=== PATIENT | female | born 1985 | race Caucasian/White ===

== ENCOUNTER 2020-12-23 14:39 | Outpatient (REF) | payer OTHER, SELFPAY ==
--- NOTE | ~2020-12-23 | US_ITS ---
EXAMINATION: MM DIAGNOSTIC DIGITAL BREAST TOMOSYNTHESIS, BILATERAL US DIAGNOSTIC ULTRASOUND BREAST, BILATERAL CLINICAL INFORMATION: 35-year-old with scattered bilateral waxing and waning mastodynia. Scattered areas of palpable fullness noted. No known family history breast cancer. The lifetime risk of breast cancer based on the Tyrer-Cuzick Model is 8%. COMPARISON: Reports from outside diagnostic mammography and left breast ultrasound 09/06/2020 ([facility], [place], [place]). TECHNIQUE: Digital breast tomosynthesis is performed in both the craniocaudal and mediolateral oblique views along with computer-aided detection (CAD). Synthesized 2D images are generated from the tomosynthesis. Ultrasound both breasts are imaged with ultrasound using grayscale imaging and color Doppler without and with harmonics. All 4 quadrants are imaged on each side. FINDINGS: The breasts are heterogeneously dense, which may obscure small masses (ACR BI-RADS breast composition Category c). Breast tissue composition borders on extremely dense in the bilateral upper outer quadrants. There is no mass or architectural abnormality. No abnormal calcifications. The axilla and skin contours are unremarkable. There is no skin thickening or coarsening of the Nino's ligaments. Ultrasound bilateral breasts demonstrate no cystic or solid mass, architectural abnormality, or focal duct ectasia. There is no skin thickening or edema tracking in the soft tissue planes. Results are discussed with the patient at time of visit. Patient should be managed based on the clinical impression. If clinically indicated, further evaluation may be considered with surgical consult. Decision to proceed with biopsy should be based on clinical grounds and degree of clinical concern. US/US breast RT limited IMPRESSION: No mammographic evidence of malignancy or inflammatory changes. Unremarkable bilateral breast ultrasound. ASSESSMENT: BI-RADS 1: Negative RECOMMENDATION: 1. Patient should be managed based on the clinical impression. If clinically indicated, further evaluation may be considered with surgical consult. Decision to proceed with biopsy should be based on clinical grounds and degree of clinical concern. 2. Otherwise, routine annual screening mammography, beginning age 40, or earlier as clinical risk factors warrant. This patient's information was entered into a reminder system with a target due date for their next mammogram.
--- NOTE | ~2020-12-23 | US_ITS ---
EXAMINATION: MM DIAGNOSTIC DIGITAL BREAST TOMOSYNTHESIS, BILATERAL US DIAGNOSTIC ULTRASOUND BREAST, BILATERAL CLINICAL INFORMATION: 35-year-old with scattered bilateral waxing and waning mastodynia. Scattered areas of palpable fullness noted. No known family history breast cancer. The lifetime risk of breast cancer based on the Tyrer-Cuzick Model is 8%. COMPARISON: Reports from outside diagnostic mammography and left breast ultrasound 09/06/2020 ([facility], [place], [place]). TECHNIQUE: Digital breast tomosynthesis is performed in both the craniocaudal and mediolateral oblique views along with computer-aided detection (CAD). Synthesized 2D images are generated from the tomosynthesis. Ultrasound both breasts are imaged with ultrasound using grayscale imaging and color Doppler without and with harmonics. All 4 quadrants are imaged on each side. FINDINGS: The breasts are heterogeneously dense, which may obscure small masses (ACR BI-RADS breast composition Category c). Breast tissue composition borders on extremely dense in the bilateral upper outer quadrants. There is no mass or architectural abnormality. No abnormal calcifications. The axilla and skin contours are unremarkable. There is no skin thickening or coarsening of the Nino's ligaments. Ultrasound bilateral breasts demonstrate no cystic or solid mass, architectural abnormality, or focal duct ectasia. There is no skin thickening or edema tracking in the soft tissue planes. Results are discussed with the patient at time of visit. Patient should be managed based on the clinical impression. If clinically indicated, further evaluation may be considered with surgical consult. Decision to proceed with biopsy should be based on clinical grounds and degree of clinical concern. US/US breast LT limited IMPRESSION: No mammographic evidence of malignancy or inflammatory changes. Unremarkable bilateral breast ultrasound. ASSESSMENT: BI-RADS 1: Negative RECOMMENDATION: 1. Patient should be managed based on the clinical impression. If clinically indicated, further evaluation may be considered with surgical consult. Decision to proceed with biopsy should be based on clinical grounds and degree of clinical concern. 2. Otherwise, routine annual screening mammography, beginning age 40, or earlier as clinical risk factors warrant. This patient's information was entered into a reminder system with a target due date for their next mammogram.
== END 2020-12-23 14:40 | disposition home or self-care (01) ==
LOC: HO.MAMMO 14:39
PROVIDERS: Visit Provider Nurse Practitioner Family
DX: N63.15 Unspecified lump in the right breast, overlapping quadrants (principal); N63.14 Unspecified lump in the right breast, lower inner quadrant; N63.23 Unspecified lump in the left breast, lower outer quadrant
CPT/HCPCS: 76642; 77062; 77066

== ENCOUNTER 2025-05-27 12:07 | Emergency (ER) | payer OTHER, SELFPAY ==
--- NOTE | ~2025-05-27 | US_ITS ---
EXAMINATION: US KIDNEY RIGHT HISTORY: right CVA tenderness TECHNIQUE: Real-time grayscale ultrasound imaging of the right kidney was performed and images were reviewed. COMPARISON: There are no prior studies available for comparison. FINDINGS: The right kidney measures 11.01 cm. Renal parenchymal echotexture and thickness are normal. There are no masses. There is no hydronephrosis or renal calculi. US/US renal RT IMPRESSION: Unremarkable ultrasound of the right kidney. Electronically signed by: Kamlesh Crabtree MD 05/27/2025 01:48 PM EDT
[2025-05-27 12:41] VITALS: BP 110/76; PULSE 96; RESP 16; TEMP 36.7; O2SAT 97; BMI 24.8
--- NOTE | 2025-05-27 12:47 | ED.GENADULT ---
HPI - General Adult General Chief complaint: Back Pain/Injury Stated complaint: Back pain, discolored urine Time Seen by Provider: 05/27/25 15:23 Source: patient Mode of arrival: ambulatory Limitations: no limitations History of Present Illness ED Provider: HPI narrative: 39-year-old woman presenting with right mid back pain, dark urine, whitish vaginal discharge and having unprotected sexual intercourse proximal 1 week ago, has had no history of kidney stones no abdominal pain no nausea no vomiting no rashes over the back or vaginal area reported. No fevers or chills. Smokes marijuana. No numbness in the groin, no weakness in the lower extremities. Related Data Previous Rx's ?Medication ?Instructions ?Recorded metronidazole 500 mg tablet 500 mg PO BID 7 days #14 tabs 05/27/25 Allergies Allergy/AdvReac Type Severity Reaction Status Date / Time fluconazole (From Diflucan) Allergy Unknown Verified 05/27/25 12:48 Penicillins Allergy Unknown Verified 05/27/25 12:48 Review of Systems Constitutional: Constitutional: Reports as per [facility] Social History Social History Advance Directives: No Advance Directives Information Provided: Yes Physical Exam ED Vital Signs: Vital Signs - 24 hr 05/27/25 12:41 05/27/25 15:40 Temperature 98.1 F Pulse Rate 96 93 Respiratory Rate 16 17 Blood Pressure 110/76 118/82 Pulse Oximetry 97 99 Oxygen Delivery Method Room Air Room Air BMI result Body Mass Index 24.8 Const Other: Gen: ?Overall well-appearing patient Resp: ?No wheezing rales rhonchi no stridor moving air well Abd: ?Bowel sounds are present, no tenderness no rebound no rigidity MSK: FROM, strength 5/5 all extremities, tenderness over paraspinal muscles right mid back without midline tenderness or step-offs from thoracic down to the lumbar area Skin: Warm, dry, intact, Neuro: ?Alert and oriented x3, moving upper and lower extremities symmetrically, no obvious facial asymmetry noted Course Course Course Narrative: This is an RME: Additional HPI, ROS, PE not included below will be deferred to primary provider. RME assessment and note performed by: Gisella June PA-C This is a 39-year-old female with no known medical problems, who presents emergency department with complaints of right-sided flank pain since the last 3-4 days. Also reporting dark colored urine. She also reports possible concern for STI. Plan: Labs, UA, further ER evaluation needed. Medications Administered Discontinued Medications Generic Name Dose Route Start Last Admin Trade Name Kamilla PRN Reason Stop Dose Admin Ketorolac Tromethamine 15 mg 05/27/25 15:33 05/27/25 16:05 Ketorolac Tromethamine 15 Mg/Ml Vial IM 05/27/25 15:34 15 mg ONCE ONE Administration Lidocaine 1 patch 05/27/25 15:33 05/27/25 16:05 Lidocaine 4 % Patch Adh..Patch TRANSDERMA 05/27/25 15:34 1 patch ONCE ONE Administration Protocol Oxycodone HCl 5 mg 05/27/25 15:33 05/27/25 16:05 Oxycodone Hcl Immed Release 5 Mg Tablet PO 05/27/25 15:34 5 mg ONCE ONE Administration Medical Decision Making Medical Decision Making [facility] Narrative: 3:37 PM 05/27/2025 (Dr. Shay Valdes): Multiple complaints, as far as her back pain, she had an ultrasound without any hydronephrosis, no perinephric abscesses, blood work without any evidence for dehydration, I have addressed her STI concerns and she is comfortable with testing for GC and chlamydia, then no risk factors for diskitis osteomyelitis, and she is not . 5:03 PM 05/27/2025 (Dr. Shay Valdes): Patient's back pain is feeling better, the BV swab is still pending, I spoke to the patient and this she is now looking forward to being discharged I am going to treat her for BV and yeast infection and she will get a call if her urine gets positive for gonorrhea chlamydia she is also slightly hypokalemic Differential Diagnosis Differential Diagnoses: The differential diagnosis associated with the presentation includes (Renal colic, diskitis osteomyelitis, spinal epidural abscess, STI, pyelonephritis) Admission/Observation Consideration of admission/observation: Escalation of care including admission/observation considered Lab Data [facility] Lab Attestation statement: I reviewed the patient's lab results. 05/27/25 13:20 05/27/25 13:20 Labs: Lab Results 05/27/25 05/27/25 05/27/25 Range/Units 13:20 15:43 16:11 WBC 11.2 H (4.8-10.8) X10*3/uL RBC 5.08 (4.20-5.50) X10*6/uL Hgb 14.0 (12.0-16.0) g/dl Hct 40.3 (37.0-47.0) % MCV 79.3 L (80.0-98.0) fL MCH 27.6 (27.0-33.0) pg MCHC 34.7 (31.0-35.0) g/dl RDW 14.1 (11.0-16.0) % Plt Count 450 H (160-400) X10*3/uL MPV 9.7 (9.4-12.3) fL Immature Gran % (Auto) 0.4 (0.0-0.4) % Neut % (Auto) 64.5 (45-73) % Lymph % (Auto) 26.6 (20-40) % Mingo % (Auto) 7.1 (2-11) % Eos % (Auto) 0.9 (0-4) % Baso % (Auto) 0.5 (0-2) % Lymph # (Auto) 3.0 (1.2-4.9) X10*3/uL Mingo # (Auto) 0.8 (0.1-1.2) X10*3/uL Eos # (Auto) 0.1 (0.0-0.4) X10*3/uL Baso # (Auto) 0.1 (0.0-0.2) X10*3/uL Abs Immat Gran (auto) 0.04 H (0.00-0.03) X10*3/uL Absolute Neuts (auto) 7.2 (2.0-8.3) x10*3/uL Absolute Nucleated RBC 0.000 (0.0-0.012) X10*3/uL Nucleated RBC % (auto) 0.0 (0.0-0.2) /100WBC Sodium 140 (135-145) mmol/L Potassium 3.1 L (3.3-5.1) mmol/L Chloride 104 (96-108) mmol/L Carbon Dioxide 29 (22-29) mmol/L Anion Gap 10 L (12-20) BUN 12 (9-16) mg/dL Creatinine 0.78 (0.5-1.4) mg/dL Estim Creat Clear Calc 86.9 Estimated GFR > 60 Random Glucose 115 (60-115) mg/dL Calcium 9.2 (8.4-10.2) mg/dL Magnesium 2.2 (1.6-2.6) mg/dL Total Bilirubin 0.4 (0.0-1.0) mg/dL Direct Bilirubin 0.2 (0.0-0.5) mg/dL AST 74 H (5-31) U/L ALT 82 H (0-31) U/L Alkaline Phosphatase 83 (39-117) U/L Total Protein 7.6 (6.5-8.0) g/dL Albumin 4.5 (3.5-5.0) g/dL Lipase 11 (8-78) U/L Beta HCG, Quant < 2 mIU/mL Urine Color Yellow Urine Appearance Clear Urine pH 6.5 (5.0-9.0) Ur Specific [place] 1.015 (1.005-1.025) Urine Protein Negative (Neg-Trace) mg/dL Urine Glucose (UA) Negative (Negative) mg/dL Urine Ketones 15 (Negative) mg/dL Urine Blood Negative (Negative) Urine Nitrite Negative (Negative) Ur Leukocyte Esterase Small (1+) H (Negative) Urine RBC 0-2 (0-2) /HPF Urine WBC 6-10 H (0-5) /HPF Ur Squamous Epith Cells 11-20 (0-2) /HPF Urine Bacteria Trace (None Seen) Hyaline Casts 0-2 (0-2) /LPF T. vaginalis (PCR) NOT DETECTED (Not Detect) Bact vaginosis (PCR) POSITIVE A (Negative) C. krusei/glabrata (PCR) NOT DETECTED (Not Detect) Analia group (PCR) NOT DETECTED (Not Detect) Radiology Impression Discussion of test interpretation with radiology: I have reviewed the radiologist's reading. (No hydronephrosis) Prescription Management I considered prescription management with: Pain Medication and Antibiotic Discharge Plan Discharge Clinical Impression: Bacterial vaginosis, Vaginal yeast infection Patient Disposition: Home, Self-Care Instructions: Bacterial Vaginosis (ED) Additional Instructions: Do not use alcohol while taking metronidazole, twice a day for 7 days you did test positive for bacterial vaginosis, negative for yeast, as discussed chlamydia and gonorrhea test we will be pending until next 48 hours and if it comes back positive he will get a phone call, continue taking Tylenol ibuprofen as needed for your back pain, you can also pickle maker [id number] capsaicin ointment patches they work very well, ultrasound of the kidneys written reassuring, any other issues or concerns please do not hesitate to come back to the ER. Otherwise follow up with the PCP Prescriptions: New metronidazole 500 mg tablet 500 mg PO BID 7 Days Qty: 14 0RF Referrals: Po,Maryjo Yao MD [Primary Care Provider, Internal Medicine] Clinical Impression: Bacterial vaginosis; Vaginal yeast infection Print Language: Icelandic
[2025-05-27 13:25] LABS: MANUAL DIFF FLAG NO
[2025-05-27 13:29] LABS: Hematocrit 40.3 % (37.0-47.0); Hemoglobin 14.0 g/dl (12.0-16.0); Imm Gran Abs Auto 0.04 X10*3/uL (0.00-0.03); Imm Gran Pct Auto 0.4 % (0.0-0.4); Lymphocytes Absolute Auto 3.0 X10*3/uL (1.2-4.9); Mean Corpuscular HGB Conc 34.7 g/dl (31.0-35.0); Mean Corpuscular Hemoglobin 27.6 pg (27.0-33.0); Mean Corpuscular Volume 79.3 fL (80.0-98.0); NRBC Abs Auto 0.000 X10*3/uL (0.0-0.012); NRBC Pct Auto 0.0 /100WBC (0.0-0.2); Platelet Count 450 X10*3/uL (160-400); Red Blood Count 5.08 X10*6/uL (4.20-5.50); White Blood Count 11.2 X10*3/uL (4.8-10.8)
[2025-05-27 13:49] LABS: Alanine Aminotransferase 82 U/L (0-31); Albumin Level 4.5 g/dL (3.5-5.0); Alkaline Phosphatase 83 U/L (39-117); Anion Gap 10 (12-20); Aspartate Amino Transferase 74 U/L (5-31); Blood Urea Nitrogen 12 mg/dL (9-16); Calcium 9.2 mg/dL (8.4-10.2); Carbon Dioxide 29 mmol/L (22-29); Chloride 104 mmol/L (96-108); Creatinine Clr Calc Pharmacy 86.9; Estimated Glomerular Filt Rate > 60; Lipase 11 U/L (8-78); Magnesium 2.2 mg/dL (1.6-2.6); Potassium 3.1 mmol/L (3.3-5.1); Sodium 140 mmol/L (135-145); Total Protein 7.6 g/dL (6.5-8.0)
[2025-05-27 15:40] VITALS: BP 118/82; PULSE 93; RESP 17; O2SAT 99
[2025-05-27 16:02] LABS: Appearance Urine Clear; Glucose Urine UA Negative (Negative); PH 6.5 (5.0-9.0); Specific Gravity - Urine 1.015 (1.005-1.025); UMIC TRIGGER UACC YES
[2025-05-27] MEDS: Lidocaine 4 % Patch ADH..PATCH 1 PATCH TRANSDERMA (16:05)
[2025-05-27] MEDS: oxyCODONE HCl Immed Release 5 MG TABLET PO (16:05)
[2025-05-27 16:29] LABS: UACC Culture Trigger YES
[2025-05-27 17:20] LABS: Bacterial Vaginosis PCR POSITIVE (Negative); Candida Group PCR NOT DETECTED (Not Detect); Candida glab krusei PCR NOT DETECTED (Not Detect); Trichomonas vaginalis PCR NOT DETECTED (Not Detect)
[2025-05-27 17:39] VITALS: BP 118/82; PULSE 93; RESP 17; TEMP -17.7; TEMP 0; O2SAT 99
--- OUTSIDE RECORDS SUMMARY | 2025-05-27 19:26 | XMS_ITS | Clinical Summary ---
Author Organization [facility] Address [address] [place] [address] Care Team Providers Care Accredited Farm Manager Name Role Phone Pam Alvarado Primary Care Provider [phone] Allergies Active Allergy Reactions Criticality Noted Date Comments Penicillins Edema High 02/17/2022 Medications * This document contains information received from the source organization and may not represent a complete record from that organization. moxifloxacin (VIGAMOX) 0.5% ophthalmic solution Use 1 drop into the right eye every hour while awake 3 mL 1 2 Active Additional Information Patient not taking.Reported on 02/27/2022 dextran 70-hypromellose 0.1-0.3% ophthalmic drops Instill 1 drop into the right eye 4 times a day. 15 mL 2 Active Additional Information Patient not taking.Reported on 02/27/2022 ARIPiprazole (ABILIFY) 5 mg tablet 2 Active LORazepam (ATIVAN) 0.5 mg tablet 1 Active melatonin 3 mg tablet Take 3 mg by mouth nightly as needed for sleep. Active sertraline (ZOLOFT) 100 mg tablet Take 100 mg by mouth once a day. Active prazosin (MINIPRESS) 1 mg capsule Take 1 mg by mouth nightly. Active doxepin 50 mg capsule Take 150 mg by mouth nightly. Active OLANZapine (ZyPREXA) 2.5 mg tablet Take 7.5 mg by mouth nightly. Active OLANZapine (ZyPREXA) 5 mg tablet Take 5 mg by mouth once a day. Active Active Problems Problem Noted Date Diagnosed Date Corneal abrasion, right, subsequent encounter Social History Tobacco Use Types Packs/Day Years Used Date Smoking Tobacco: Every Day Smokeless Tobacco: Current Alcohol Use Standard Drinks/Week Comments Yes 0 (1 standard drink = 0.6 oz pur e alcohol) None in 1 week. Comments No Sex and Gender Information Value Date Recorded Sex Assigned at Female 08/07/2024 12:56 AM EST Legal Sex Female 11:45 AM EDT Gender Identity Female 08/07/2024 12:56 AM EST Sexual Orientation Not on file Last Filed Vital Signs Vital Sign Reading Time Taken Comments Blood Pressure 103/66 08/12/2024 12:53 PM EST Pulse 86 08/12/2024 12:53 PM EST Temperature 36.8 C (98.2 F) 08/12/2024 12:53 PM EST Respiratory Rate 16 08/12/2024 12:53 PM EST Oxygen Saturation 98% 08/12/2024 12:53 PM EST Inhaled Oxygen Concentration - - Weight 61.2 kg (135 lb) 08/06/2024 6:14 PM EST Height 160 cm (5' 3 ) 08/06/2024 6:14 PM EST Body Mass Index 23.91 08/06/2024 6:14 PM EST Plan of Treatment Health Maintenance Due Date Last Done Comments Cervical Cancer Screening 1985 HIV Screening 1985 HPV and Pap Smear 1985 Hepatitis C Screening 1985 Pap Smear 1985 Varicella Vaccines (1 of 2 - 13+ 2-dose series) 1998 Hepatitis B Vaccines (1 of 3 - 19+ 3-dose series) 05/2005 Pneumococcal Vaccine: Pediat lorna (0-5 Years) and At-Risk Patients (6-50 Years) (1 of 2 - PCV) 2004 Alcohol/Substance Use Screening 09/02/2024 Depression Screening and Follow-Up 09/02/2024 Social Drivers of Health Annual Screening 09/02/2024 COVID-19 Vaccine ( - season) 2025 Influenza Vaccine (#1) 2025 DTaP,Tdap,and Td Vaccines (2 - Td or Tdap) 08/08/2027 08/08/2017 RSV Vaccine (60+ years old a nd patients) (1 - 1-dose 75+ series) 2060 Insurance [facility] Care Teams Accredited Farm Manager Relationship Specialty Start Date End Date Pam Alvarado [address] [place] [address] [phone] PCP - General Internal Medicine 02/21/22
--- OUTSIDE RECORDS SUMMARY | 2025-05-27 19:26 | XMS_ITS | Patient Health Record ---
Author Organization [facility] Address [address] [place] [address] Support Name Relationship Address Phone ADIS BERHANE Guarantor Unknown [phone] Reason For Referral No Information Medications Medication SIG (Take, Route, Frequency, Duration) Notes Start Date End Date Status Flagyl 500MG 1 ORAL twice daily; Duration: 14 Amandeep-MJ 12/02 Active Problems Problem Type SNOMED Code ICD Code Onset Dates Problem Status W/U Status Risk Notes Problem Candidal vulvovaginitis (88736958) Candidiasis of vulva and vagina (112.1) Active confirmed Other Problem Vulvovaginitis (disorder) (60608300) Vaginitis and vulvovaginitis (616.1) Active confirmed Other Plan Of Treatment No Information Insurance Providers Payer Name Payer Address Payer Phone Subscriber Number Group Number Insured Name Patient Relationship to Insured Coverage Start Date Coverage End Date [facility] [address] [address] [place] [address] [id number] BERHANE ARCEO Self - patient is the insured 2
--- OUTSIDE RECORDS SUMMARY | 2025-05-27 19:26 | XMS_ITS | Encounter Summary ---
Author Organization [facility] Address [address] [place] [address] Care Team Providers Care Senior C Software Engineer Name Role Phone Pam Alvarado Primary Care Provider [phone] Encounter Details Date Type Department Care Team (Late st Contact Info) Description 02/17/2022 Ophth Exam [facility] [address] [place] [address] Alan Navas MD [address] [facility] Ophthalmology [place] [id number] Social History Tobacco Use Types Packs/Day Years Used Date Smoking Tobacco: Never Assessed Comments Unknown Sex and Gender Information Value Date Recorded Sex Assigned at Female 08/07/2024 12:56 AM EST Legal Sex Female 11:45 AM EDT Gender Identity Female 08/07/2024 12:56 AM EST Sexual Orientation Not on file documented as of this encounter Plan of Treatment Not on file documented as of this encounter Visit Diagnoses Not on filedocumented in this encounter Care Teams Senior C Software Engineer Relationship Specialty Start Date End Date Pam Alvarado [address] [place] [phone] PCP - General Internal Medicine 02/21/22 documented as of this encounter
[2025-05-28 09:53] LABS: CT PCR DETECTED (Not Detect.); NG PCR NOT DETECTED (Not Detect.)
== END 2025-05-27 17:40 | disposition home or self-care (01) ==
PROVIDERS: Physician Assistant Medical; Emergency Provider Emergency Medicine; PCP Internal Medicine
DX: A56.02 Chlamydial vulvovaginitis (principal); B37.31 Acute candidiasis of vulva and vagina
CPT/HCPCS: 36415; 76775; 80048; 80076; 81001; 81003; 81515; 83690; 83735; 84702; 85025; 87086; 87491; 87591; 96372; 99284; J1885

== ENCOUNTER → 2025-05-27 12:48 | Outpatient (BNV) | payer OTHER, SELFPAY | PROVIDERS: PCP Internal Medicine; Visit Provider Radiology Diagnostic Radiology | DX: R82.91 Other chromoabnormalities of urine (principal); M54.50 Low back pain, unspecified | CPT/HCPCS: 76775 ==